=== PATIENT | male | born 1995 | race Caucasian/White ===

== ENCOUNTER 2023-08-12 16:27 | Emergency (ER) | payer SELFPAY ==
[~2023-08-12] VITALS: Ht 177.8 cm; Wt 87.0 kg
[2023-08-12 16:43] VITALS: O2SAT 98
[2023-08-12] MEDS ORDERED: KETOROLAC 60MG/2ML VIAL IM ONE (19:00)
[2023-08-12] MEDS: KETOROLAC 60MG/2ML VIAL IM NR (20:53)
[2023-08-12] MEDS ORDERED: P50 MT (22:02)
[2023-08-12 22:11] VITALS: BP 132/78; PULSE 77; RESP 19; TEMP 98.5
== END 2023-08-12 22:13 | disposition home or self-care (01) ==
LOC: ER 16:27
DX: M25.551 Pain in right hip (principal); M54.31 Sciatica, right side
CPT/HCPCS: 99284; 73502; 73560; 96372; J1885